=== PATIENT | male | born 1960 | race Caucasian/White ===

== ENCOUNTER 2024-09-12 17:31 | Emergency (ER) | payer OTHER, SELFPAY ==
[2024-09-12 17:42] VITALS: BP 139/92
[2024-09-12 18:20] LABS: % Basophils 0.6 % (0-2); % Eosinophils 2.6 % (0-6); % Immature Granulocytes 0.5 % (0-0.5); % Lymphocytes 32.2 % (20.5-51.1); % Monocytes 8.1 % (1.7-9.3); Absolute Basophils 0.1 10^3/uL (0-0.2); Absolute Eosinophils 0.3 10^3/uL (0-0.7); Absolute Immature Granulocytes 0.1 10^3/uL (0-0.05); Absolute Lymphocytes 3.4 10^3/uL (1.2-3.4); Absolute Monocytes 0.9 10^3/uL (0.1-0.6); Absolute Neutrophils 5.9 10^3/uL (1.4-6.5); Hemoglobin 14.5 g/dL (13.0-18.0); Mean Corpuscular Hgb 30.5 pg (27.0-31.0); Mean Corpuscular Volume 92.6 fL (80.0-94.0); Mean Platelet Volume 9.8 fL (7.4-10.4); Nucleated Red Blood Cells % 0 % (-); Platelet Count 220 10^3/uL (130-400); Red Blood Cell Count 4.75 10^6/uL (4.70-6.10); Red Cell Dist. Width 12.7 % (11.5-14.5); White Blood Cell Count 10.5 10^3/uL (4.8-10.8)
[2024-09-12 18:24] LABS: INR 0.96; PT 13.1 Sec (11.4-14.6)
[2024-09-12 18:25] LABS: APTT 28.7 Sec (23.4-35.0)
[2024-09-12 18:31] LABS: ALT (SGPT) 25 U/L (0-50); AST (SGOT) 27 U/L (17-59); Albumin 4.5 g/dl (3.5-5.0); Alkaline Phosphatase 46 U/L (38-126); Blood Urea Nitrogen 23 mg/dl (9-20); Calcium 9.1 mg/dl (8.4-10.2); Carbon Dioxide 28 mmol/L (22-30); Chloride 103 mmol/L (98-107); Glucose 104 mg/dl (70-99); Sodium 142 mmol/L (135-145); Total Bilirubin 0.5 mg/dl (0.2-1.3); Total Protein 7.3 g/dl (6.3-8.2); eGFR > 60.00
[2024-09-12 18:43] LABS: Troponin I < 0.012 ng/ml
[2024-09-12 20:38] VITALS: BMI 26.8
--- NOTE | 2024-09-12 20:42 | ED.GENMED ---
History of Present Illness
General
Chief Complaint: Numbness
Source: patient
Exam Limitations: none
Time Seen by Provider: 09/12/24 20:26
History of Present Illness
History of Present Illness:
This is a 63 year old male that comes in with c/o right arm numbness and tingling. States that his arm is also painful. state that he woke with this in the morning. States that it never went away today. States that over the past week he felt like
his balance was off and he had to grab onto the wall. Denies any fever, chills, chest pain, SOB, abd pain, nausea, vomiting, diarrhea, headache, urinary burning.
Past History
Past History
ED Past Medical History: Hypercholesterolemia; Negative Asthma, HTN or NIDDM
ED Past Surgical History: Orthopedic (Jaw surgery ADRIEN) and Tonsilectomy
Social History
Tobacco: Non-smoker
Alcohol: Occasional
Personal: (Same sex partner)
Living: with family
Review of Systems
Review of Systems
All Other Systems: ROS reviewed and negative except as documented in HPI and ROS
Constitutional: Reports no symptoms; Denies fever or chills
EENT: Reports no symptoms
Respiratory: Reports no symptoms; Denies cough or trouble breathing
Cardiac: Reports no symptoms; Denies chest pain
ABD/GI: Reports no symptoms; Denies abdominal pain, nausea, vomiting or diarrhea
: Reports no symptoms; Denies dysuria, frequency or urgency
Musculoskeletal: Reports other (Right arm tingling and numbness)
Skin: Reports no symptoms
Neurological: Reports dizzy; Denies headache
Psychiatric: Reports no symptoms
Phy Exam
General Physical Exam
General Presentation: no apparent distress
General age: appears stated age
General Skin: warm and dry
General Habitus: normal
General Mental: alert
General Hydration: appears well hydrated
ENT Exam
ENT Exam: TM's normal, pharynx normal and neck supple
Eye Exam
Eye Exam: EOMI
Cardiovascular Exam
Cardiovascular Exam: regular rate/rhythm, no edema, no murmur and normal peripheral pulses
Pulmonary Exam
Pulmonary Exam: lungs clear, no respiratory distress, no rales, chest non tender, no crackles, no rhonchi, no wheezing and no cough
Gastrointestinal Exam
Gastrointestinal Exam: normal bowel sounds, non tender, soft, no organomegaly, no pulsatile mass and non distended
Musculoskeletal Exam
Musculoskeletal Exam: full ROM, no edema and other (Hand grasp equal)
Skin Exam
Skin Exam: normal color, warm/dry, no rash and no petechia
Psychiatric Exam
Psychiatric Exam: normal mood/affect
Course
Orders/Labs/Results
Orders:
Orders
09/12/24 17:51
Electrocardiogram (*1) Urgent
Reason for Study: Vertigo / Dizzy
CT Head W/o Iv Contrast Urgent
Comment:
Reason For Exam: dizzy
EKG- Treatment ONCE
09/12/24 18:00
Complete Blood Count/With Diff Urgent
Comprehensive Metabolic Panel Urgent
PTT Urgent
Prothrombin Time Urgent
Troponin I Urgent
09/12/24 20:42
Arms, right US [US Periph Venous UPPER Ext RT] Urgent
Comment:
Reason For Exam: Pain, Tinguling and numbness
Abnormal Lab Results
09/12/24
18:00
Abs Immat Gran (auto) 0.1 H 10^3/uL
(0-0.05)
Absolute Monos (auto) 0.9 H 10^3/uL
(0.1-0.6)
BUN 23 H mg/dl
(9-20)
Glucose 104 H mg/dl
(70-99)
09/12/24 18:00
09/12/24 18:00
Dehydration. Glucose nonfasting. PT 13.1 with INR 0.96, PTT 28.7, Troponin <0.012
Vital Signs
Initial and Last Documented VS:
Initial Vital Signs
Temp Pulse Resp BP Pulse Ox
98.1 F 73 19 139/92 98
09/12/24 17:42 09/12/24 17:42 09/12/24 17:42 09/12/24 17:42 09/12/24 17:42
Last Documented Vital Signs
Temp Pulse Resp BP Pulse Ox
98.1 F 73 19 138/93 100
09/12/24 17:42 09/12/24 17:42 09/12/24 17:42 09/12/24 22:25 09/12/24 20:55
MDM/Problems Addressed
Differential Diagnosis Includes:
Paraesthesia's, CVA
MDM/Problems Addressed:
This is a 63 year old male that comes in with c/o right arm tingling and numbness. States that it has been this way since he got up this morning. Patient was seen at and sent to the ER.
Will get labs CT head.
Explained to patient that his blood work shows some dehydration. CT of the head is normal. Patient to increase his water intake to 8-8oz glasses daily. Follow up with the family doctor for recheck. Got patient OOB and he is stable on his feet and
able to walk without assistance. Return with any concerns.
Chronic conditions affecting care:
NA
Acute Exacerbation and/or Progression of Chronic Illness:
NA
*Radiology
Radiology exam reviewed: radiology read reviewed (CT head=No acute intracranial abnormality US-No sonographic evidence for right upper extremity venous thrombosis. )
*Pulse Oximetry
Patient hypoxic: no
*EKG
Interpreted by ED Provider?: Yes
Heart Rate: 62
Rate: normal
Rhythm: sinus
[place]: normal axis
Interval: normal interval
QRS Pattern: normal QRS
Ischemia: no ischemia
*Hostess Host Interpretation
Rate: Hostess Host- N/A
*Critical Care Note
Total Time (30-74mins, 75-104mins- exclusive of procedures): Not Applicable
ED Attending Note
-
Portions of this chart may have been created with voice recognition software.� Occasional wrong word or��sound alike� substitutions may have occurred due to the inherent limitations of voice recognition software.
Discharge Plan
Departure
Patient Disposition: Home (Routine Discharge)
Date of Disposition: 09/12/24
Time of Disposition: 23:21
Patient with high blood pressure during this ER visit?: Yes
Condition: Good
Covid-19: Not Applicable
Discharge Problem:
Numbness and tingling of right arm
Instructions: Paresthesia (DC), BLOOD PRESSURE
Referrals:
NONE,* [Family Provider] -
Activity Restrictions/Additional Instructions:
As discussed, your blood work shows that you are dehydrated. Please increase your water intake to 8-8oz glasses daily. Your CT of the head is normal. Please follow up with the family doctor for recheck. IF YOU HAVE INCREASED NUMBNESS OR TINGLING OR
YOU HAVE ANY OTHER CONCERNS PLEASE RETURN TO THE EMERGENCY ROOM.
Interventions
Interventions:
*Risk Screen - Suicide Last Done: 09/12/24 17:46
*General Assessment Last Done: 09/12/24 17:46
*Neglect/Abuse Screening Last Done: 09/12/24 17:46
ED- Fall Risk Assessment Last Done: 09/12/24 20:45
*ED COVID-19 Vaccine History Last Done: 09/12/24 17:46
ED- Neurological Assessment Last Done: 09/12/24 20:45
Discharge Date and Time
Print Language: MOHAWK
[2024-09-12 22:25] VITALS: BP 138/93
--- NOTE | 2024-09-12 22:37 | EDRN ---
Updated patient and his on his results
[2024-09-12 23:00] VITALS: BP 132/82
== END 2024-09-12 23:40 | disposition home or self-care (01) ==
LOC: EMR 17:31
PROVIDERS: Emergency Medicine; EMERGENCY PHYSICIAN Emergency Medicine
DX: R20.0 Anesthesia of skin (principal); R20.2 Paresthesia of skin; E86.0 Dehydration; E78.00 Pure hypercholesterolemia, unspecified
CPT/HCPCS: 99284; 70450; 80053; 84484; 85025; 85610; 85730; 93005; 93971